=== PATIENT | female | born 1955 | race Hispanic/Latino ===

== ENCOUNTER → 2017-08-10 | Outpatient (CLI) | payer OTHER | END | disposition home or self-care (01) | LOC: RAH 09:29 | PROVIDERS: ATTEND Family Medicine | DX: Z12.31 Encounter for screening mammogram for malignant neoplasm of breast (principal) | CPT/HCPCS: 77067 ==

== ENCOUNTER → 2018-08-16 | Outpatient (CLI) | payer OTHER | END | disposition home or self-care (01) | LOC: RAH 10:39 | PROVIDERS: ATTEND Family Medicine | DX: Z12.31 Encounter for screening mammogram for malignant neoplasm of breast (principal) | CPT/HCPCS: 77067 ==

== ENCOUNTER → 2019-09-10 | Outpatient (CLI) | payer OTHER | END | disposition home or self-care (01) | LOC: RAH 11:14 | PROVIDERS: ATTEND Family Medicine | DX: Z12.31 Encounter for screening mammogram for malignant neoplasm of breast (principal) | CPT/HCPCS: 77067 ==

== ENCOUNTER 2019-11-20 11:36 | Observation (INO) | payer OTHER ==
[~2019-11-20] VITALS: Ht 154.9 cm; Wt 104.3 kg
[2019-11-20 11:51] LABS: BASOPHILS % (AUTO) 0.4 % (0.0-5.0); EOSINOPHILS % (AUTO) 0.8 % (0.0-8.0); HEMATOCRIT 32.2 % (36-48); LYMPHOCYTES % (AUTO) 42.6 % (21.0-51.0); MEAN CORPUSCULAR HEMOGLOBIN 30.7 pg (27.0-33.0); MEAN CORPUSCULAR HGB CONC 33.9 g/dL (32.0-36.0); MEAN CORPUSCULAR VOLUME 90.7 fL (79-99); MONOCYTES % (AUTO) 6.9 % (3.0-13.0); NEUTROPHILS % (AUTO) 48.6 % (40.0-77.0); PLATELET COUNT (AUTO) 248 K/uL (130-400); RED BLOOD CELL COUNT(AUTO) 3.55 MIL/uL (4.00-5.50); RED CELL DISTRIBUTION WIDTH 13.4 % (11.0-15.5); WHITE BLOOD COUNT (AUTO) 12.8 K/uL (4.8-10.8)
[2019-11-20 12:03] LABS: CREATININE 1.4 mg/dL (0.5-1.5); POTASSIUM 4.4 mmol/L (3.5-5.1)
[2019-11-20 12:07] LABS: INR 0.97 (0.85-1.15); PROTHROMBIN TIME 10.5 SEC (9.6-11.6)
[2019-11-20 12:08] LABS: ALBUMIN 2.8 g/dL (3.5-5.0); BILIRUBIN,TOTAL 0.5 mg/dL (0.2-1.0); TOTAL PROTEIN, SERUM 7.4 g/dL (6.0-8.3)
[2019-11-20 12:12] LABS: B-TYPE NATRIURETIC PEPTIDE 50 pg/mL (0-100)
[2019-11-20 12:46] LABS: RAPID GROUP A STREP NEGATIVE (NEGATIVE)
[2019-11-20] MEDS ORDERED: LEVOFLOXACIN 500 MG/D5W 100 ML 100 ML ONE (13:05)
[2019-11-20 14:07] LABS: APPEARANCE,URINE Clear (CLEAR); BILIRUBIN,URINE Negative (NEGATIVE); COLOR,URINE Yellow (YELLOW); GLUCOSE, URINE (UA) Negative (NEGATIVE); KETONES,URINE Negative (NEGATIVE); LEUKOCYTE ESTERASE ,URINE Negative (NEGATIVE); NITRATE,URINE Negative (NEGATIVE); OCCULT BLOOD,URINE Negative (NEGATIVE); PROTEIN,URINE Negative (NEGATIVE)
[2019-11-20] MEDS ORDERED: DEXAMETHASONE SOD PHOSPHATE 10MG/ML 1ML VIAL ONE (14:23)
[2019-11-20] MEDS ORDERED: ENOXAPARIN SODIUM 40 MG/0.4 ML SYRINGE SQ ONE (14:24)
[2019-11-20] MEDS ORDERED: AZITHROMYCIN 500MG+NS 250ML 250 ML IV ONE (14:24)
[2019-11-20 14:36] LABS: ABG BASE EXCESS -1.1 mmol/L (-2.0-3.0); ABG OXYGEN SATURATION 95.9 % (95.0-99.0); ABG PCO2 32 mmHg (32-45)
[2019-11-20] MEDS ORDERED: IOHEXOL-350 75 ML VIAL IV ONE (15:42)
[2019-11-20] MEDS ORDERED: ALBUTEROL INHALER 90MCG/INH IH PRN (16:00)
[2019-11-20] MEDS ORDERED: DEXAMETHASONE 10MG/ML 1ML VIAL 20 MG in SODIUM CHLORIDE 0.9% 50 ML IV SCH (16:00)
[2019-11-20] MEDS ORDERED: GUAIFENESIN-CODEINE 5 ML SYRUP PO PRN (16:00)
[2019-11-20] MEDS ORDERED: ACETAMINOPHEN-CODEINE 300/30MG TAB PO PRN ×2 (16:00→17:45)
[2019-11-20] MEDS ORDERED: ACETAMINOPHEN 325 MG TAB PO PRN (16:00)
[2019-11-20 16:31] VITALS: BP 101/34
[2019-11-20] MEDS ORDERED: ESCI20TA36 PO (16:46)
[2019-11-20] MEDS ORDERED: SIMV-46 PO (16:46)
[2019-11-20] MEDS ORDERED: LISI1TAB32 PO (16:46)
[2019-11-20] MEDS ORDERED: MULT-30 PO (16:46)
[2019-11-20] MEDS ORDERED: OMEP20CA12 PO (16:46)
[2019-11-20] MEDS ORDERED: POTA2TAB18 PO (16:46)
[2019-11-20] MEDS ORDERED: GABA-529 PO (16:46)
[2019-11-20] MEDS ORDERED: ASPI-1005 PO (16:47)
[2019-11-20] MEDS ORDERED: POTASSIUM CHLORIDE 20MEQ/100ML 100 ML IV PRN (17:45)
[2019-11-20] MEDS ORDERED: POTASSIUM CHLORIDE 10% ELIXIR 20 MEQ/15 ML UDCUP PO PRN (17:45)
[2019-11-20] MEDS ORDERED: POTASSIUM CHLORIDE 20 MEQ ERTAB PO PRN (17:45)
[2019-11-20] MEDS ORDERED: HYDRALAZINE HCL 20 MG/ML VIAL IV PRN (17:45)
[2019-11-20] MEDS ORDERED: MORPHINE SULFATE 2 MG/ML 1ML SYG IV PRN (17:45)
[2019-11-20] MEDS ORDERED: MAGNESIUM 2GM PREMIX 50ML 50 ML IV PRN (17:45)
[2019-11-20] MEDS ORDERED: BENZONATATE 100 MG CAPSULE PO PRN (17:45)
[2019-11-20] MEDS ORDERED: LIDOCAINE HCL-MPF 1% 2ML VIAL IV PRN (17:45)
[2019-11-20] MEDS: SODIUM CHLORIDE 0.9% 1000ML 1,000 ML IV SCH (17:56)
[2019-11-20 20:10] VITALS: BP 116/72
[2019-11-20] MEDS: INSULIN HUMULIN R 100 UNIT/ML 3ML SQ SCH (20:47)
[2019-11-20] MEDS: ENOXAPARIN SODIUM 30 MG/0.3 ML SQ SCH (20:50)
[2019-11-20] MEDS: DOXYCYCLINE HYCLATE 100 MG TABLET PO SCH (20:50)
[2019-11-20] MEDS ORDERED: GABAPENTIN 100 MG CAPSULE PO SCH (21:00)
[2019-11-20] MEDS ORDERED: SIMVASTATIN 20 MG TABLET PO SCH (21:00)
[2019-11-20 23:31] VITALS: BP 125/94
--- NOTE | 2019-11-21 00:30 | NUR ---
HOUSE SUP AWARE PT IS COVID NEGATIVE STATED THERE ARE NO ROOMS AT THE MOMENT
[2019-11-21 04:00] VITALS: BP 121/72
[2019-11-21] MEDS: SODIUM CHLORIDE 0.9% 1000ML 1,000 ML IV SCH (05:20)
[2019-11-21 05:46] LABS: BASOPHILS % (AUTO) 0.3 % (0.0-5.0); EOSINOPHILS % (AUTO) 0.1 % (0.0-8.0); HEMATOCRIT 29.6 % (36-48); LYMPHOCYTES % (AUTO) 39.4 % (21.0-51.0); MEAN CORPUSCULAR HEMOGLOBIN 30.9 pg (27.0-33.0); MEAN CORPUSCULAR HGB CONC 33.4 g/dL (32.0-36.0); MEAN CORPUSCULAR VOLUME 92.5 fL (79-99); MONOCYTES % (AUTO) 2.6 % (3.0-13.0); NEUTROPHILS % (AUTO) 56.3 % (40.0-77.0); PLATELET COUNT (AUTO) 255 K/uL (130-400); RED CELL DISTRIBUTION WIDTH 13.4 % (11.0-15.5); WHITE BLOOD COUNT (AUTO) 9.1 K/uL (4.8-10.8)
[2019-11-21 06:05] LABS: ALBUMIN 2.6 g/dL (3.5-5.0); BILIRUBIN,TOTAL 0.4 mg/dL (0.2-1.0); CREATININE 1.1 mg/dL (0.5-1.5); POTASSIUM 4.9 mmol/L (3.5-5.1); TOTAL PROTEIN, SERUM 7.1 g/dL (6.0-8.3)
[2019-11-21 06:12] LABS: B-TYPE NATRIURETIC PEPTIDE 152 pg/mL (0-100)
[2019-11-21] MEDS: INSULIN HUMULIN R 100 UNIT/ML 3ML SQ SCH ×2 (06:31→11:30)
[2019-11-21 08:00] VITALS: BP 127/75
[2019-11-21 08:19] LABS: ABG BASE EXCESS -6.3 mmol/L (-2.0-3.0); ABG HCO3 17.1 mmol/L (21.0-28.0); ABG OXYGEN SATURATION 95.4 % (95.0-99.0); ABG PCO2 29 mmHg (32-45)
[2019-11-21] MEDS ORDERED: LISINOPRIL 10 MG TABLET PO SCH (09:00)
[2019-11-21] MEDS ORDERED: ASPIRIN 81MG TAB.CHEW PO SCH (09:00)
[2019-11-21] MEDS ORDERED: FAMOTIDINE 20MG TAB 20 MG TAB PO SCH (09:00)
[2019-11-21] MEDS ORDERED: LEVOFLOXACIN 750 MG/D5W 150 ML 150 ML IV SCH (09:00)
[2019-11-21] MEDS ORDERED: CITALOPRAM 20 MG TABLET PO SCH (09:00)
[2019-11-21] MEDS ORDERED: AZITHROMYCIN 500MG+NS 250ML 250 ML IV SCH (09:00)
[2019-11-21] MEDS ORDERED: PANTOPRAZOLE SODIUM 40 MG TABLET.DR PO SCH (09:00)
[2019-11-21] MEDS ORDERED: HYDROCHLOROTHIAZIDE 25 MG TABLET PO SCH (09:00)
[2019-11-21] MEDS: DOXYCYCLINE HYCLATE 100 MG TABLET PO SCH (09:35)
[2019-11-21] MEDS: ENOXAPARIN SODIUM 30 MG/0.3 ML SQ SCH (09:42)
[2019-11-21 12:00] VITALS: BP 121/64
--- NOTE | 2019-11-21 13:31 | NUR ---
PHYSICIAN ROUNDS DR EYAD CASTANO ROUNDED ON PATIENT PATIENT MAY BE DISCHARGE PATIENT FOLLOW-UP DR BOOGIE IN ONE WEEK AND PRIMARY PHYSICIAN AND 1 WEEK.
[2019-11-21] MEDS ORDERED: DOXY100T2 PO (13:47)
[2019-11-21] MEDS ORDERED: ALBUHFA IH (13:47)
[2019-11-21] MEDS ORDERED: COMPOUND IV MISC 1 EACH IVSOLN MISC PRN (14:00)
--- NOTE | 2019-11-21 15:05 | NUR ---
PATIENT GIVEN DISCHARGE INSTRUCTION AND VERBALIZED UNDERSTANDING, IV REMOVED WITH CATHETER INTACT AND SITE DRESSED. TELEMETRY NOTIFIED AND MONITOR UNIT REMOVED. REVIEWED MEDICATION AND FOLLOW-UP APPOINTMENT , PATIENT DENIES PAIN AND NO QUESTIONS OR CONCERNS VOICED AT THIS TIME , BELONGING GATHERED AND PATIENT CALLED FOR RIDE.
--- NOTE | 2019-11-21 15:16 | NUR ---
1023 called patient to her room to get oral consent for IM Letter,patient is in [facility] Area. Brennon(Dutton printed labels to place on IM Letter) I faxed IM Letter to [phone] from [employer] fax machine. I asked Brennon(alumnae secretary) to please give patient copy of IM Letter and place Original IM Letter in chart.
== END 2019-11-21 15:50 | disposition home or self-care (01) ==
LOC: EDH 11:36 → INTOOBSV 14:00 → EDHIP 14:00 → 2DH 15:34
PROVIDERS: ADMIT Internal Medicine Critical Care Medicine; ATTEND Internal Medicine Critical Care Medicine
DX: J18.9 Pneumonia, unspecified organism (principal); J96.01 Acute respiratory failure with hypoxia; J44.0 Chronic obstructive pulmonary disease with (acute) lower respiratory infection; I10 Essential (primary) hypertension; E78.5 Hyperlipidemia, unspecified
CPT/HCPCS: 36415 ×2; 36600 ×2; 71045 ×2; 71275; 80053 ×2; 81003; 82550; 82803 ×2; 82948 ×3; 83605 ×2; 83735; 83880 ×2; 84145; 84484; 85025 ×2; 85378; 85610; 85730; 87040 ×2; 87486; 87581; 87633; 87798; 87804 ×2; 87880; 93005; 93306; 93356; 93970; 94760; 96365; 96372 ×2; 99285; A4606; G0378 ×11; J0456; J1100 ×2; J1650 ×3; J1815; J1956; J7030 ×2; Q9967; U0003

== ENCOUNTER 2020-02-24 20:52 | Observation (INO) | payer OTHER ==
[~2020-02-24] VITALS: Ht 154.9 cm; Wt 104.2 kg
[~2020-02-24 20:52] MED LIST: ALBUHFA IH; ASPI-1005 PO; DOXY100T2 PO; ESCI20TA36 PO; GABA-529 PO; LISI1TAB32 PO; MULT-30 PO; OMEP20CA12 PO; POTA2TAB18 PO; SIMV-46 PO
[2020-02-24] MEDS ORDERED: ONDANSETRON HCL 4 MG/2 ML VIAL ONE (21:05)
[2020-02-24 21:11] LABS: BASOPHILS % (AUTO) 0.1 % (0.0-5.0); HEMATOCRIT 37.1 % (36-48); LYMPHOCYTES % (AUTO) 16.4 % (21.0-51.0); MEAN CORPUSCULAR HEMOGLOBIN 31.7 pg (27.0-33.0); MEAN CORPUSCULAR HGB CONC 33.7 g/dL (32.0-36.0); MEAN CORPUSCULAR VOLUME 94.2 fL (79-99); MONOCYTES % (AUTO) 2.2 % (3.0-13.0); NEUTROPHILS % (AUTO) 81.2 % (40.0-77.0); PLATELET COUNT (AUTO) 182 K/uL (130-400); RED BLOOD CELL COUNT(AUTO) 3.94 MIL/uL (4.00-5.50); RED CELL DISTRIBUTION WIDTH 12.5 % (11.0-15.5); WHITE BLOOD COUNT (AUTO) 8.5 K/uL (4.8-10.8)
[2020-02-24 21:30] LABS: INR 0.97 (0.85-1.15); PARTIAL THROMBOPLASTIN TIME 24.9 SEC (26.3-35.5); PROTHROMBIN TIME 10.5 SEC (9.6-11.6)
[2020-02-24] MEDS ORDERED: ACETAMINOPHEN 325 MG TAB ONE (21:31)
[2020-02-24 21:39] LABS: CREATININE 1.5 mg/dL (0.5-1.5); POTASSIUM 4.1 mmol/L (3.5-5.1)
[2020-02-24 21:41] LABS: ALBUMIN 3.9 g/dL (3.5-5.0); BILIRUBIN,TOTAL 0.7 mg/dL (0.2-1.0); TOTAL PROTEIN, SERUM 7.9 g/dL (6.0-8.3)
[2020-02-24] MEDS ORDERED: SODIUM CHLORIDE 0.9% 500ML 500 ML IV ONE (21:55)
[2020-02-24] MEDS ORDERED: SODIUM CHLORIDE 0.9% 1000ML 1,000 ML IV ONE (21:55)
[2020-02-24] MEDS ORDERED: KETOROLAC TROMETHAMINE 15MG/ML ONE (22:36)
[2020-02-24] MEDS ORDERED: PROCHLORPERAZINE EDISYLATE 10 MG/2 ML VIAL ONE (22:37)
[2020-02-25 00:32] LABS: APPEARANCE,URINE Clear (CLEAR); BILIRUBIN,URINE Negative (NEGATIVE); COLOR,URINE Dark Yellow (YELLOW); GLUCOSE, URINE (UA) Negative (NEGATIVE); KETONES,URINE Trace mg/dL (NEGATIVE); LEUKOCYTE ESTERASE ,URINE Negative (NEGATIVE); NITRATE,URINE Negative (NEGATIVE); OCCULT BLOOD,URINE Negative (NEGATIVE); PROTEIN,URINE Trace mg/dL (NEGATIVE)
[2020-02-25] MEDS: SODIUM CHLORIDE 0.9% 1000ML 1,000 ML IV SCH ×2 (03:12→07:36)
[2020-02-25] MEDS ORDERED: ONDANSETRON HCL 4 MG/2 ML VIAL IVP PRN ×2 (03:30→12:45)
[2020-02-25] MEDS ORDERED: ALBUTEROL INHALER 90MCG/INH IH PRN (03:30)
[2020-02-25] MEDS ORDERED: DOXYCYCLINE 100MG+NS 250ML 250 ML IV SCH (03:30)
[2020-02-25] MEDS ORDERED: BENZONATATE 100 MG CAPSULE PO PRN (03:30)
[2020-02-25] MEDS ORDERED: HYDRALAZINE HCL 20 MG/ML VIAL IV PRN ×2 (03:30→12:45)
[2020-02-25] MEDS ORDERED: DOXYCYCLINE 100MG+NS 250ML 250 ML IV ONE (03:59)
--- NOTE | 2020-02-25 04:10 | NUR ---
RAPID COVID TEST (-), COVID PCR TEST DONE, BUT STILL PENDING RESULTS. Addendum: 02/25/20 at 0548 by MICHAEL VALE RN RN Amended: Links added.
[2020-02-25 04:26] VITALS: BP 105/66
[2020-02-25] MEDS ORDERED: VANCOMYCIN PROTOCOL PER PHARMACY IV SCH (04:30)
[2020-02-25] MEDS: LEVOFLOXACIN 500 MG/D5W 100 ML 100 ML IV SCH (06:09)
[2020-02-25] MEDS: INSULIN HUMULIN R 100 UNIT/ML 3ML SQ SCH ×4 (06:19→21:00)
[2020-02-25] MEDS ORDERED: COMPOUND IV REFRIGERATED 1 EACH IVSOLN MISC PRN (06:30)
[2020-02-25 08:00] VITALS: BP 104/43
[2020-02-25] MEDS: VANCOMYCIN 2 GM in SODIUM CHLORIDE 0.9% 500ML 500 ML IV SCH (08:00)
[2020-02-25 08:35] LABS: EOSINOPHILS % (AUTO) 0.3 % (0.0-8.0); HEMATOCRIT 32.7 % (36-48); LYMPHOCYTES % (AUTO) 37.5 % (21.0-51.0); MEAN CORPUSCULAR HEMOGLOBIN 31.5 pg (27.0-33.0); MEAN CORPUSCULAR VOLUME 95.3 fL (79-99); MONOCYTES % (AUTO) 9.3 % (3.0-13.0); NEUTROPHILS % (AUTO) 52.8 % (40.0-77.0); PLATELET COUNT (AUTO) 152 K/uL (130-400); RED BLOOD CELL COUNT(AUTO) 3.43 MIL/uL (4.00-5.50); RED CELL DISTRIBUTION WIDTH 12.7 % (11.0-15.5); WHITE BLOOD COUNT (AUTO) 7.4 K/uL (4.8-10.8)
[2020-02-25 08:49] LABS: ALBUMIN 3.2 g/dL (3.5-5.0); BILIRUBIN,TOTAL 0.9 mg/dL (0.2-1.0); CREATININE 1.3 mg/dL (0.5-1.5); POTASSIUM 3.6 mmol/L (3.5-5.1); TOTAL PROTEIN, SERUM 6.5 g/dL (6.0-8.3)
[2020-02-25] MEDS: FAMOTIDINE 20MG TAB 20 MG TAB PO SCH (10:02)
[2020-02-25] MEDS: VANCOMYCIN 1.25 GM in SODIUM CHLORIDE 0.9% 250 ML IV SCH (10:03)
--- NOTE | 2020-02-25 11:51 | NUR ---
DCP CM unable to meet w/pt, called sister on facesheet, spoke to Genevieve [phone], discussed dc plans. Pt is assist with ADL's, lives at home with siblings. Pt has a shower chair, provider 17hrs/wk w/[facility]. Denies any other equipments/services, feels safe to go back home, sisters able to assist with transportation and needs as necessary. Genevieve gave another sister contact # in case, Mayte Christiansen , faxed to registration to updated. DC plan to home once stable. CM to cont to follow up. Addendum: 02/25/20 at 1154 by NAM MORTENSEN LVN CM Amended: Links added.
[2020-02-25 12:00] VITALS: BP 106/39
[2020-02-25] MEDS ORDERED: LACTULOSE 20 GM/30 ML UDCUP PO PRN (12:45)
[2020-02-25] MEDS ORDERED: LOPERAMIDE 1 MG/7.5 ML UDCUP PO PRN (12:45)
[2020-02-25] MEDS ORDERED: HYDROMORPHONE HCL 0.5 MG/0.5 ML ML IVP PRN (12:45)
[2020-02-25] MEDS ORDERED: ACETAMINOPHEN 325 MG TAB PO PRN (12:45)
--- NOTE | 2020-02-25 13:19 | NUR ---
RE: LUMBAR PUNCTURE UNSUCCESSFUL ATTEMPT DONE IN ER. COVID-19 PCR COLLECTED 02/24/[address] Nato DINH NOTIFIED. PROCEDURE TO BE RESCHEDULED WHEN RESULTS AVAILABLE. FLUOROSCOPY MACHINE DOWN IN RADIOLOGY AND CANNOT BE DONE AT THIS TIME. PROCEDURE OUTCOME REPORTED TO Allan RUTHERFORD RN
[2020-02-25 16:00] VITALS: BP 125/68
--- NOTE | 2020-02-25 20:00 | NUR ---
RAPID COVID (-), BUT COVID PCR RESULTS STILL PENDING. Addendum: 02/26/20 at 0330 by MICHAEL VALE RN RN Amended: Links added.
[2020-02-25 20:11] VITALS: BP 124/68
[2020-02-25] MEDS: SIMVASTATIN 20 MG TABLET PO SCH (20:24)
[2020-02-25] MEDS ORDERED: GABAPENTIN 100 MG CAPSULE PO SCH (21:00)
[2020-02-25 23:27] VITALS: BP 119/53
[2020-02-26] MEDS: LEVOFLOXACIN 500 MG/D5W 100 ML 100 ML IV SCH (04:01)
[2020-02-26] MEDS: SODIUM CHLORIDE 0.9% 1000ML 1,000 ML IV SCH ×3 (04:30→19:12)
[2020-02-26 05:09] VITALS: BP 115/57
[2020-02-26] MEDS: VANCOMYCIN 2 GM in SODIUM CHLORIDE 0.9% 500ML 500 ML IV SCH (05:42)
[2020-02-26] MEDS: INSULIN HUMULIN R 100 UNIT/ML 3ML SQ SCH ×4 (05:56→20:21)
[2020-02-26] MEDS: VANCOMYCIN 1.25 GM in SODIUM CHLORIDE 0.9% 250 ML IV SCH (06:13)
[2020-02-26 06:42] LABS: MAGNESIUM 1.5 mg/dL (1.80-2.40); PHOSPHORUS 2.9 mg/dL (2.5-4.9)
[2020-02-26 08:00] VITALS: BP 114/60
--- NOTE | 2020-02-26 09:15 | NUR ---
DR. VICENTE IN TO SEE PATIENT PT REFUSED LUMBAR PUNCTURE.
[2020-02-26] MEDS ORDERED: IOHEXOL-350 75 ML VIAL IV ONE (10:46)
[2020-02-26 11:00] VITALS: BP 110/69
[2020-02-26] MEDS: HYDROCHLOROTHIAZIDE 25 MG TABLET PO SCH (11:07)
[2020-02-26] MEDS: MULTIVITAMIN WITH MINERALS TABLET PO SCH (11:08)
[2020-02-26] MEDS: GABAPENTIN 100 MG CAPSULE PO SCH ×2 (11:08→20:21)
[2020-02-26] MEDS: LISINOPRIL 10 MG TABLET PO SCH (11:08)
[2020-02-26] MEDS: CITALOPRAM 20 MG TABLET PO SCH (11:09)
[2020-02-26] MEDS: ASPIRIN 81MG TAB.CHEW PO SCH (11:09)
[2020-02-26] MEDS: FAMOTIDINE 20MG TAB 20 MG TAB PO SCH (11:09)
[2020-02-26] MEDS: MAGNESIUM 2GM PREMIX 50ML 50 ML IV SCH (14:14)
[2020-02-26 16:00] VITALS: BP 105/67
[2020-02-26 19:50] VITALS: BP 127/66
[2020-02-26] MEDS: SIMVASTATIN 20 MG TABLET PO SCH (20:21)
[2020-02-26 23:16] VITALS: BP 115/57
[2020-02-27 03:20] VITALS: BP 100/47
[2020-02-27] MEDS: LEVOFLOXACIN 500 MG/D5W 100 ML 100 ML IV SCH (05:36)
[2020-02-27] MEDS: SODIUM CHLORIDE 0.9% 1000ML 1,000 ML IV SCH (05:36)
[2020-02-27] MEDS: INSULIN HUMULIN R 100 UNIT/ML 3ML SQ SCH (05:36)
[2020-02-27 07:12] LABS: HEMATOCRIT 34.1 % (36-48); MEAN CORPUSCULAR HEMOGLOBIN 31.4 pg (27.0-33.0); MEAN CORPUSCULAR HGB CONC 33.1 g/dL (32.0-36.0); MEAN CORPUSCULAR VOLUME 94.7 fL (79-99); RED BLOOD CELL COUNT(AUTO) 3.6 MIL/uL (4.00-5.50); RED CELL DISTRIBUTION WIDTH 12.6 % (11.0-15.5)
[2020-02-27 07:38] LABS: CREATININE 0.9 mg/dL (0.5-1.5); POTASSIUM 3.9 mmol/L (3.5-5.1)
--- NOTE | 2020-02-27 07:40 | NUR ---
ASSESSMENT ENCOUNTERED PT A&OX3, CALM COOPERATIVE AN DOES NOT APPEAR TO BE IN ANY DISTRESS NOR ANY NEURO DEFICITS PRESENT. PT DENIES PAIN, SOB, NAUSEA. PT IS AMBULATORY, GAIT STEADY AND STRONG WITH STAND BY ASSIST. PT DOES C/O INTERMITTENT HEADACHES. CALL LIGHT WITHIN REACH.
[2020-02-27 08:03] VITALS: BP 125/61
[2020-02-27] MEDS: ASPIRIN 81MG TAB.CHEW PO SCH (09:32)
[2020-02-27] MEDS: CITALOPRAM 20 MG TABLET PO SCH (09:32)
[2020-02-27] MEDS: LISINOPRIL 10 MG TABLET PO SCH (09:32)
[2020-02-27] MEDS: HYDROCHLOROTHIAZIDE 25 MG TABLET PO SCH (09:32)
[2020-02-27] MEDS: FAMOTIDINE 20MG TAB 20 MG TAB PO SCH (09:33)
[2020-02-27] MEDS: MULTIVITAMIN WITH MINERALS TABLET PO SCH (09:33)
[2020-02-27] MEDS: GABAPENTIN 100 MG CAPSULE PO SCH (09:33)
[2020-02-27] MEDS: MAGNESIUM 2GM PREMIX 50ML 50 ML IV SCH (10:44)
[2020-02-27 11:17] VITALS: BP 122/66
[2020-02-27] MEDS ORDERED: LEVO500T2 PO (14:19)
--- NOTE | 2020-02-27 15:00 | NUR ---
DISCHARGE INSTRUCTIONS GIVEN, PIV REMOVED AND INTACT, DISCHARGED HOME TO FAMILY VEHICLE VIA WHEELCHAIR.
== END 2020-02-27 15:58 | disposition home or self-care (01) ==
LOC: EDH 20:52 → EDHIP 02-25 03:12 → 4CH 02-25 04:25
PROVIDERS: ADMIT Internal Medicine Critical Care Medicine; ATTEND Internal Medicine Critical Care Medicine
DX: E86.0 Dehydration (principal); Z20.828 Contact with and (suspected) exposure to other viral communicable diseases; R51 Headache; N17.9 Acute kidney failure, unspecified; J44.1 Chronic obstructive pulmonary disease with (acute) exacerbation; I10 Essential (primary) hypertension; F41.9 Anxiety disorder, unspecified; E78.5 Hyperlipidemia, unspecified; E66.9 Obesity, unspecified; D64.9 Anemia, unspecified; R06.02 Shortness of breath; I82.403 Acute embolism and thrombosis of unspecified deep veins of lower extremity, bilateral; Z88.0 Allergy status to penicillin
CPT/HCPCS: 36415 ×4; 70450; 70496; 70498; 70551; 71045; 71250; 80048; 80053 ×2; 81003; 82948 ×10; 83036; 83605 ×3; 83690; 83735 ×2; 84100; 84484; 85025 ×2; 85027; 85378; 85610; 85730; 87040; 87088; 87426; 93005; 93970; 96361 ×3; 96365; 96366 ×2; 96367; 96375; 96376; 99285; G0378 ×46; J0780; J1885; J1956 ×3; J2405; J3370 ×3; J3475 ×2; J3490; J7030 ×3; J7040 ×2; J7050 ×2; Q9967; U0003

== ENCOUNTER → 2020-10-07 | Outpatient (CLI) | payer OTHER ==
[~2020-10-07] MED LIST changes: -DOXY100T2 PO; -ESCI20TA36 PO; +ESCI20TA38 PO; +LEVO500T2 PO
== END | disposition home or self-care (01) ==
LOC: RAH 13:45
PROVIDERS: ATTEND Family Medicine
DX: Z12.31 Encounter for screening mammogram for malignant neoplasm of breast (principal)
CPT/HCPCS: 77067

== ENCOUNTER → 2022-07-14 | Outpatient (CLI) | payer OTHER ==
[~2022-07-14] MED LIST changes: -LISI1TAB32 PO; +LISI1TAB49 PO
== END | disposition home or self-care (01) ==
LOC: RAH 08:22
PROVIDERS: ATTEND Family Medicine
DX: Z12.31 Encounter for screening mammogram for malignant neoplasm of breast (principal)
CPT/HCPCS: 77067